=== PATIENT | female | born 1995 | race Two or more races ===

== ENCOUNTER → 2022-12-14 | Outpatient (CLI) | payer MEDICAID | END | disposition home or self-care (01) | LOC: Rad HDHVI 16:11 | PROVIDERS: ATTEND Internal Medicine Cardiovascular Disease | DX: I34.0 Nonrheumatic mitral (valve) insufficiency (principal); J90 Pleural effusion, not elsewhere classified; R00.2 Palpitations | CPT/HCPCS: 93306 ==

== ENCOUNTER → 2023-01-09 | Outpatient (CLI) | payer MEDICAID ==
[~2023-01-09] VITALS: Ht 167.6 cm; Wt 70.3 kg
== END | disposition home or self-care (01) ==
LOC: Rad HDHVI 09:12
PROVIDERS: ATTEND Internal Medicine Cardiovascular Disease
DX: R07.89 Other chest pain (principal); E78.00 Pure hypercholesterolemia, unspecified; Z82.49 Family history of ischemic heart disease and other diseases of the circulatory system
CPT/HCPCS: 93017

== ENCOUNTER 2023-03-30 11:22 | Emergency (ER) | payer MEDICAID ==
[~2023-03-30] VITALS: Ht 167.6 cm; Wt 71.3 kg
[2023-03-30] MEDS ORDERED: SUMAtriptan SUCCINATE 6 MG/0.5 ML VL SC ONE (12:00)
[2023-03-30 12:27] LABS: Basophils # (auto) 0 10 ^3/uL (0-0.2); Basophils % (auto) 0.8 % (0.0-2.0); Eosinophils # (auto) 0.3 10 ^3/uL (0-0.8); Eosinophils % (auto) 6.1 % (0.0-7.0); Hematocrit 39.1 % (36.0-46.0); Lymphocytes # (auto) 2.9 10 ^3/uL (0.4-5.4); Lymphocytes % (auto) 52.7 % (10.0-50.0); Mean Corpuscular Hemoglobin 29.6 pg (28.0-32.0); Mean Corpuscular Hgb Conc. 33.3 g/dL (32.0-36.0); Mean Corpuscular Volume 88.8 fL (80.0-100.0); Monocytes # (auto) 0.4 10 ^3/uL (0-1.3); Monocytes % (auto) 6.5 % (0.0-12.0); Neutrophils # (auto) 1.8 10 ^3/uL (1.6-8.6); Neutrophils % (auto) 33.9 % (37.0-80.0); Red Cell Distribution Width 14.8 % (11.8-14.3); White Blood Cell 5.4 10^3/uL (4.4-10.8)
[2023-03-30 12:33] LABS: Alanine Aminotransferase 21 U/L (7-40); Albumin 4.9 g/dL (3.2-4.8); Alkaline Phosphatase 47 U/L (46-116); Anion Gap 10 (5-15); Aspartate Aminotransferase 27 U/L (13-40); Blood Urea Nitrogen 6 mg/dL (9-23); Calcium 9.9 mg/dL (8.5-10.1); Carbon Dioxide 26 mmol/L (20-30); Chloride 105 mmol/L (98-107); Glucose 82 mg/dL (74-106); Potassium 4.1 mmol/L (3.5-5.1); Sodium 141 mmol/L (136-145)
[2023-03-30 12:34] LABS: Bilirubin, Total 0.6 mg/dL (0.2-1.0); Total Protein 8.1 g/dL (5.7-8.2)
[2023-03-30 13:00] LABS: Amphetamine Screen, Urine Neg (NEGATIVE); Barbiturate Scree,Urine Neg (NEGATIVE); Benzodiazephine Screen, Urine Neg (NEGATIVE); Cocaine Screen, Urine Neg (NEGATIVE); Opiate Scree,Urine Neg (NEGATIVE)
[2023-03-30 13:01] LABS: Cannabinoid Screen, Urine Neg (NEGATIVE); Phencyclidine Screen, Urine Neg (NEGATIVE)
[2023-03-30 13:08] LABS: Urine Bacteria NONE SEEN /hpf (None Seen); Urine Blood Negative /uL (Negative); Urine Clarity Clear (Clear); Urine Color Yellow (Yellow); Urine Mucus FEW (None Seen); Urine Protein, UAD Negative (Negative); Urine Specific Gravity 1.025 (1.001-1.035); Urine Urobilinogen Normal (Negative); Urine WBC <1 /hpf (0 - 5); Urine pH 6.5 (5.0-8.0)
[2023-03-30 13:27] VITALS: BP 114/59; PULSE 65; RESP 16; TEMP 97.7; O2SAT 98
[2023-03-30] MEDS ORDERED: HYDR-4902 PO (13:32)
[2023-03-30] MEDS ORDERED: HYDROcodone-ACET 10/325MG TAB PO ONE (13:45)
== END 2023-03-30 13:35 | disposition home or self-care (01) ==
LOC: ER 11:22
DX: G43.909 Migraine, unspecified, not intractable, without status migrainosus (principal); R07.89 Other chest pain; Z88.2 Allergy status to sulfonamides; Z88.1 Allergy status to other antibiotic agents; Z32.02 Encounter for pregnancy test, result negative; Z79.899 Other long term (current) drug therapy
CPT/HCPCS: 36415; 80053; 80307; 81001; 81025; 84484; 85025; 93005; 96372; 99284; J3030

== ENCOUNTER → 2023-08-14 | Outpatient (CLI) | payer BC ==
[~2023-08-14] MED LIST: HYDR-4902 PO
[2023-08-14 13:45] LABS: Erythrocyte Sedimentation Rate 18 mm/hr (0-20)
[2023-08-15 08:06] LABS: Anti-Nuclear Antibody Direct Negative (Negative); Anti-dsDNA Antibody 2 IU/mL (0-9); Complement C3 124 mg/dL (82-167); RNP Antibody <0.2 AI (0.0-0.9); Rheumatoid Arthritis Factor <10.0 IU/mL (<14.0); Smith Antibody <0.2 AI (0.0-0.9)
[2023-08-15 19:06] LABS: Chlamydia Trachomatis, NAA Negative (Negative); Neisseria gonorrhoeae, NAA Negative (Negative)
[2023-08-16 13:06] LABS: CCP IgG/IgA Antibody 4 units (0-19)
== END | disposition home or self-care (01) ==
LOC: LAB 12:38
PROVIDERS: ATTEND Internal Medicine Rheumatology
DX: M25.50 Pain in unspecified joint (principal); L65.9 Nonscarring hair loss, unspecified
CPT/HCPCS: 36415; 85652; 86038; 86141; 86160; 86200; 86225; 86235; 86431; 86703; 86812

== ENCOUNTER → 2023-08-27 | Outpatient (CLI) | payer BC ==
[2023-08-27 11:26] LABS: Basophils # (auto) 0 10 ^3/uL (0-0.2); Basophils % (auto) 0.8 % (0.0-2.0); Eosinophils # (auto) 0.3 10 ^3/uL (0-0.8); Eosinophils % (auto) 5.8 % (0.0-7.0); Hematocrit 35.4 % (36.0-46.0); Hemoglobin 11.6 g/dL (12.2-16.2); Lymphocytes # (auto) 2.3 10 ^3/uL (0.4-5.4); Lymphocytes % (auto) 45.7 % (10.0-50.0); Mean Corpuscular Hemoglobin 28.3 pg (28.0-32.0); Mean Corpuscular Hgb Conc. 32.8 g/dL (32.0-36.0); Mean Corpuscular Volume 86.4 fL (80.0-100.0); Monocytes # (auto) 0.3 10 ^3/uL (0-1.3); Monocytes % (auto) 6.2 % (0.0-12.0); Neutrophils # (auto) 2.1 10 ^3/uL (1.6-8.6); Neutrophils % (auto) 41.5 % (37.0-80.0); Nucleated Red Blood Cells % 0.1 %; Red Cell Distribution Width 15.2 % (11.8-14.3)
[2023-08-27 12:14] LABS: Alanine Aminotransferase 12 U/L (7-40); Albumin 4.5 g/dL (3.2-4.8); Alkaline Phosphatase 46 U/L (46-116); Anion Gap 5 (5-15); Aspartate Aminotransferase 15 U/L (13-40); BUN/Creatinine Ratio 10.8 (10.0-20.0); Bilirubin, Total 0.5 mg/dL (0.2-1.0); Blood Urea Nitrogen 8 mg/dL (9-23); Calcium 9.4 mg/dL (8.5-10.1); Carbon Dioxide 28 mmol/L (20-30); Chloride 107 mmol/L (98-107); Cholesterol 154 mg/dL (< 200); Glucose 90 mg/dL (74-106); HDL Cholesterol 54 mg/dL (40-59); LDL Cholesterol 91 mg/dL (< 100); Potassium 3.8 mmol/L (3.5-5.1); Sodium 140 mmol/L (136-145); Total Protein 7.5 g/dL (5.7-8.2); Triglycerides 93 mg/dL (< 150)
[2023-08-28 08:17] LABS: RPR Non Reactive (Non Reactive)
== END | disposition home or self-care (01) ==
LOC: LAB 11:07
PROVIDERS: ATTEND Internal Medicine Rheumatology
DX: E55.9 Vitamin D deficiency, unspecified (principal); R00.0 Tachycardia, unspecified
CPT/HCPCS: 36415; 80053; 80061; 82306; 83036; 85025; 86592

== ENCOUNTER 2023-11-06 08:26 | Emergency (ER) | payer BC, MEDICAID ==
[~2023-11-06] VITALS: Ht 152.4 cm; Wt 74.0 kg
[2023-11-06 08:45] VITALS: PULSE 79; RESP 19; O2SAT 99
[2023-11-06 08:47] LABS: Urine Bacteria None Seen /hpf (None Seen)
[2023-11-06 08:55] LABS: Urine Blood Negative /uL (Negative); Urine Clarity Clear (Clear); Urine Color Light-Yellow (Yellow); Urine Mucus FEW (None Seen); Urine Protein, UAD Negative (Negative); Urine Urobilinogen Normal (Negative); Urine WBC 1 /hpf (0 - 5); Urine pH 6.5 (5.0-9.0)
[2023-11-06 10:00] VITALS: BP 137/62; PULSE 77; RESP 20; TEMP 98.2; O2SAT 99
== END 2023-11-06 11:13 | disposition home or self-care (01) ==
LOC: ER 08:26
DX: O26.891 Other specified pregnancy related conditions, first trimester (principal); R10.2 Pelvic and perineal pain; Z3A.01 Less than 8 weeks gestation of pregnancy; Z88.2 Allergy status to sulfonamides; Z88.8 Allergy status to other drugs, medicaments and biological substances; Z90.49 Acquired absence of other specified parts of digestive tract; Z98.890 Other specified postprocedural states
CPT/HCPCS: 36415; 81001; 84702

== ENCOUNTER 2023-11-22 12:45 | Emergency (ER) | payer BC, MEDICAID ==
[~2023-11-22] VITALS: Ht 167.6 cm; Wt 73.2 kg
[2023-11-22 13:15] VITALS: BP 111/68; PULSE 79; RESP 18; O2SAT 100
== END 2023-11-22 15:32 | disposition left against medical advice (07) ==
LOC: ER 12:45
DX: O20.0 Threatened abortion (principal); R10.2 Pelvic and perineal pain; Z3A.01 Less than 8 weeks gestation of pregnancy; Z88.2 Allergy status to sulfonamides
CPT/HCPCS: 36415; 76801; 76817; 84702

== ENCOUNTER 2023-12-06 14:26 | Emergency (ER) | payer BC, MEDICAID | END 2023-12-06 15:05 | disposition left against medical advice (07) | LOC: ER 14:26 | DX: J11.1 Influenza due to unidentified influenza virus with other respiratory manifestations (principal); Z53.21 Procedure and treatment not carried out due to patient leaving prior to being seen by health care provider ==

== ENCOUNTER 2024-01-06 19:58 | Emergency (ER) | payer BC, MEDICAID ==
[~2024-01-06] VITALS: Ht 167.6 cm; Wt 76.4 kg
[2024-01-06] MEDS: LIDOCAINE 1% HCL (LOCAL ANESTH.) INJ 20ML MDV ONE (20:22)
[2024-01-06] MEDS ORDERED: CLIN1CAP70 PO (20:39)
[2024-01-06 21:15] VITALS: BP 123/71; PULSE 93; RESP 12; TEMP 98.6; O2SAT 100
[2024-01-06] MEDS: CLINDAMYCIN HCL 150 MG CAP PO ONE (21:33)
== END 2024-01-06 21:38 | disposition home or self-care (01) ==
LOC: ER 19:58
DX: N75.1 Abscess of Bartholin's gland (principal); Z90.49 Acquired absence of other specified parts of digestive tract; Z98.890 Other specified postprocedural states; Z88.1 Allergy status to other antibiotic agents; Z88.2 Allergy status to sulfonamides; Z88.8 Allergy status to other drugs, medicaments and biological substances
CPT/HCPCS: 56420; 87205; 99284; J2001

== ENCOUNTER → 2024-01-11 | Outpatient (CLI) | payer MEDICAID ==
[~2024-01-11] MED LIST changes: +CLIN1CAP70 PO
== END | disposition home or self-care (01) ==
LOC: Rad HDHVI 08:03
PROVIDERS: ATTEND Internal Medicine Cardiovascular Disease
DX: R00.2 Palpitations (principal); R06.02 Shortness of breath
CPT/HCPCS: 93306

== ENCOUNTER 2024-03-13 11:05 | Observation (INO) | payer SELFPAY ==
[~2024-03-13] VITALS: Ht 167.6 cm; Wt 80.7 kg
--- NOTE | 2024-03-14 14:16 | DVHDS2 ---
Physician Discharge Progress N Final Diagnosis: cramping Operations or Procedures: Operations or Procedures nst,sono Condition on Discharge: Good Disposition: Home Discharge Instructions: Diet: Regular Activity: Light activity Medications: na Follow Up Care: Specialist: 2d Discharge Statement: "Patient was advised to return to the ER or call 911 if any headaches, dizziness, shortness of breath, chest pain, abdominal pain, bleeding, fevers, or worsening of medical condition. Patient was counseled about treatment plan, medications, possible side effects, patientverbalized understanding. All questions were answered to the best of my ability. This discharge took greater then 30 minutes in planning, reviewing documentation, counseling the patient, and discussing with other team members." AUNDREA BAJWA DO Mar 14, 2024 14:16
== END 2024-03-13 13:21 | disposition home or self-care (01) ==
LOC: UNDOADMOB 11:05 → LDRP 11:05 → UNDODISOB 13:21
PROVIDERS: ADMIT Obstetrics & Gynecology; ATTEND Obstetrics & Gynecology
DX: O26.892 Other specified pregnancy related conditions, second trimester (principal); R10.9 Unspecified abdominal pain; R51.9 Headache, unspecified; R11.0 Nausea; O62.9 Abnormality of forces of labor, unspecified; Z3A.22 22 weeks gestation of pregnancy; Z88.5 Allergy status to narcotic agent; Z88.2 Allergy status to sulfonamides; Z91.040 Latex allergy status; Z88.1 Allergy status to other antibiotic agents; Z79.899 Other long term (current) drug therapy
CPT/HCPCS: 59025; 81002; 94760; G0378

== ENCOUNTER 2024-05-13 20:12 | Observation (INO) | payer BC ==
[~2024-05-13] VITALS: Ht 167.6 cm; Wt 86.2 kg
[2024-05-13] MEDS ORDERED: NITR-87 PO (20:46)
[2024-05-13] MEDS ORDERED: OSEL75CA5 PO (20:47)
[2024-05-13] MEDS ORDERED: ZOFR4T PO (22:04)
--- NOTE | 2024-05-13 23:04 | DVHDS2 ---
Physician Discharge Progress N Final Diagnosis: DFM, resolved Secondary Diagnosis: UTI influenza Operations or Procedures: Operations or Procedures S: 29yo IUP@30.5wks presents to OB triage with c/o DFM. Denies UCs/LOF/VB/ALFARO/vision changes/RUQ pain. Endorses +FM. PNC was with Dr. Alvarez but he dropped her as a pt without referral to another high density finishing operator. Pt ended up going to [facility] OB triage to start the process of getting care at their clinic. Still pending appt due to delays in getting records from Dr. Alvarez's office. She states they faxed it to [facility] office that is part of [facility]. She is currently getting ultrasound appts at [facility] due to a known heart condition. 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 Currently has UTI, taking macrobid (day 2 of 7 day course) Also has influenza, taking tamiflu Pt reports fever at home, 100.4F that finally broke after tylenol 1000mg PO taken at 1830 O: VSS, afebrile EFM: FHR 130s, moderate variability, +accels, -decels TOCO: 2 UCs A: 29yo IUP@30.5wks NST reactive DFM, resolved UTI Influenza P: D/C home FKC/PTL precautions reviewed Rx sent for Zofran Take daily probiotic supplement Pt instructed to go to [facility] office physically to get records in order to make appt with [facility] care office f/u with [facility] for care Dr. Bruner consulted, agrees with POC. Condition on Discharge: Stable Disposition: Home Discharge Instructions: Diet: Regular Activity: No Restrictions, As Tolerated Medications: see med list Follow Up Care: Specialist: f/u with [facility] for care Discharge Statement: "Patient was advised to return to the ER or call 911 if any headaches, dizziness, shortness of breath, chest pain, abdominal pain, bleeding, fevers, or worsening of medical condition. Patient was counseled about treatment plan, medications, possible side effects, patientverbalized understanding. All questions were answered to the best of my ability. This discharge took greater then 30 minutes in planning, reviewing documentation, counseling the patient, and discussing with other team members." Visit Coding OBGYN Date of Service: May 13, 2024 Billing Provider: JOSELINE HANCOCK CNM RN CARE TRANSITION Common Visit Codes: [id number] OBS CARE (HIGH) JOSELINE HANCOCK CNM May 13, 2024 23:04
== END 2024-05-13 22:27 | disposition home or self-care (01) ==
LOC: LDRP 20:12
PROVIDERS: ADMIT Obstetrics & Gynecology; ATTEND Obstetrics & Gynecology
DX: O23.43 Unspecified infection of urinary tract in pregnancy, third trimester (principal); N39.0 Urinary tract infection, site not specified; O99.513 Diseases of the respiratory system complicating pregnancy, third trimester; J11.1 Influenza due to unidentified influenza virus with other respiratory manifestations; Z98.890 Other specified postprocedural states; Z79.899 Other long term (current) drug therapy; Z3A.30 30 weeks gestation of pregnancy; Z88.5 Allergy status to narcotic agent; Z88.8 Allergy status to other drugs, medicaments and biological substances
CPT/HCPCS: 59025; 81002; 94760; G0378